=== PATIENT | male | born 1925 | race Caucasian/White ===

== ENCOUNTER 2016-07-31 19:17 | Inpatient (IN) | payer MEDICARE ==
[~2016-07-31] VITALS: Ht 165.1 cm; Wt 63.5 kg
[2016-07-31 19:26] VITALS: BP 176/77
[2016-07-31] MEDS ORDERED: Meclizine 25mg tab ORAL ONE (20:15)
[2016-07-31 21:02] LABS: BASOPHILS % (AUTO) 0.9 % (0.0-2.0); EOSINOPHILS % (AUTO) 1.7 % (0.0-3.0); MEAN CORPUSCULAR HEMOGLOBIN 31.2 PG (27.0-31.0); MEAN CORPUSCULAR HGB CONC 33.2 G/DL (32.0-36.0); MEAN CORPUSCULAR VOLUME 94 FL (80-99); MEAN PLATELET VOLUME 6.7 FL (6.5-10.1); MONOCYTES % (AUTO) 10.2 % (1.0-10.0); NEUTROPHILS % (AUTO) 76.2 % (45.0-75.0); PLATELET COUNT 207 K/UL (150-450); RED BLOOD COUNT 3.46 M/UL (4.70-6.10); RED CELL DISTRIBUTION WIDTH 12.8 % (11.6-14.8); WHITE BLOOD COUNT 11.4 K/UL (4.8-10.8)
[2016-07-31 21:12] LABS: TROPONIN I < 0.30 ng/mL (<=0.30)
[2016-07-31 21:16] LABS: ALANINE AMINOTRANSFERASE 7 U/L (3-41); ASPARTATE AMINO TRANSFERASE 16 U/L (5-40); CALCIUM 6.9 mg/dL (8.6-10.2); CARBON DIOXIDE 17 mEQ/L (20-30); CREATININE 1.1 mg/dL (0.7-1.2)
[2016-07-31 21:17] LABS: ALBUMIN/GLOBULIN RATIO 1.1 (1.0-2.7); ANION GAP 17 (5-15); CHLORIDE 101 mEQ/L (98-107); HEMOLYSIS 65; POTASSIUM 4.1 mEQ/L (3.4-4.9); SODIUM 135 mEQ/L (135-145); TOTAL PROTEIN 5.1 g/dL (6.6-8.7)
[2016-07-31 21:27] LABS: CKMB 2.3 ng/mL (< 6.7)
[2016-07-31 22:33] VITALS: BP 164/54
[2016-07-31] MEDS ORDERED: cefTRIAXone 1 GM in NS 55 ML IVPB ONE (22:45)
[2016-08-01] VITALS (7 sets, daily range): BP systolic 146–166; BP diastolic 56–73
--- NOTE | 2016-08-01 00:06 | Emergency Room Report ---
History of Present Illness General Chief Complaint: Dizziness Source: Patient, EMS Present Illness HPI This patient states he was sitting on a couch today and suddenly developed a spinning sensation. The patient states he was unable to stand up. He states every time he tried to stand up she would fall backward back onto the couch. He also states he moved his head the spinning reoccurs. He states that he also gets very nauseated. Patient states that he had a similar episode last year was admitted to [facility] and underwent a very thorough workup and no etiology was identified. The patient does admit that he's recently had a bronchitis. He has had an ongoing cough and congestion. He denies fever or chills. He denies headache neck pain. He denies abdominal pain. He has no other complaints. Allergies: Coded Allergies: No Known Allergies (Unverified , 07/31/16) Patient History Past Medical History: see triage record, HTN Past Surgical History: pacemaker Social History: Denies: alcohol use, drug use, smoking Reviewed Nursing Documentation: PMH: Agreed, PSxH: Agreed Nursing Documentation-PMH Past Medical History: No History, Except For Hx Hypertension: Yes Hx Pacemaker: Yes Review of Systems All Other Systems: negative except mentioned in HPI Physical Exam Vital Signs Date Time Temp Pulse Resp B/P Pulse Ox O2 Delivery O2 Flow Rate FiO2 07/31/16 19:12 98.2 60 18 176/77 98 Room Air Sp02 EP Interpretation: reviewed, normal General Appearance: no apparent distress, alert, GCS 15, non-toxic Head: normocephalic, atraumatic Eyes: bilateral eye PERRL, bilateral eye normal inspection ENT: hearing grossly normal, normal pharynx, no angioedema, normal voice Neck: full range of motion, supple/symm/no masses Respiratory: chest non-tender, lungs clear, normal breath sounds, speaking full sentences Cardiovascular #1: regular rate, rhythm, no edema Gastrointestinal: normal bowel sounds, non tender, soft, non-distended, no guarding, no rebound Rectal: deferred Musculoskeletal: back normal, gait/station normal, normal range of motion, non- tender Neurologic: alert, oriented x3, responsive, motor strength/tone normal, sensory intact, speech normal Psychiatric: judgement/insight normal, memory normal, mood/affect normal, no suicidal/homicidal ideation Skin: normal color, no rash, warm/dry, well hydrated Medical Decision Making Diagnostic Impression: Primary Impression: Pneumonia Additional Impression: Vertigo ER Course This patient presents with vertigo that appears to be peripheral in etiology. There are no signs or symptoms on exam the make me suspect a central etiology. CT of the head is negative. However, given the patient's age a central CVA is possible. The patient is also found to have a pneumonia. He is given broad- spectrum antibiotics here in the emergency department. I will admit this patient for further IV antibiotics and additionally this patient will likely need an MRI tomorrow to fully assess the vertigo. Also, given this patient's age she is a fall risk and I felt that discharging this patient home at night on meclizine is dangerous. The patient is admitted for further evaluation and treatment. Labs Test 07/31/16 20:30 White Blood Count 11.4 K/UL (4.8-10.8) Red Blood Count 3.46 M/UL (4.70-6.10) Hemoglobin 10.8 G/DL (14.2-18.0) Hematocrit 32.5 % (42.0-52.0) Mean Corpuscular Volume 94 FL (80-99) Mean Corpuscular Hemoglobin 31.2 PG (27.0-31.0) Mean Corpuscular Hemoglobin Concent 33.2 G/DL (32.0-36.0) Red Cell Distribution Width 12.8 % (11.6-14.8) Platelet Count 207 K/UL (150-450) Mean Platelet Volume 6.7 FL (6.5-10.1) Neutrophils (%) (Auto) 76.2 % (45.0-75.0) Lymphocytes (%) (Auto) 11.0 % (20.0-45.0) Monocytes (%) (Auto) 10.2 % (1.0-10.0) Eosinophils (%) (Auto) 1.7 % (0.0-3.0) Basophils (%) (Auto) 0.9 % (0.0-2.0) Sodium Level 135 mEQ/L (135-145) Potassium Level 4.1 mEQ/L (3.4-4.9) Chloride Level 101 mEQ/L (98-107) Carbon Dioxide Level 17 mEQ/L (20-30) Anion Gap 17 (5-15) Blood Urea Nitrogen 19 mg/dL (7-23) Creatinine 1.1 mg/dL (0.7-1.2) Estimat Glomerular Filtration Rate mL/min (>60) Glucose Level 75 mg/dL (74-106) Calcium Level 6.9 mg/dL (8.6-10.2) Total Bilirubin < 0.2 mg/dL (0.0-1.2) Aspartate Amino Transf (AST/SGOT) 16 U/L (5-40) Alanine Aminotransferase (ALT/SGPT) 7 U/L (3-41) Alkaline Phosphatase 50 U/L (40-129) Total Creatine Kinase 87 U/L (38-174) Creatine Kinase MB 2.3 ng/mL (< 6.7) Creatine Kinase MB Relative Index 2.6 Troponin I < 0.30 ng/mL (<=0.30) Total Protein 5.1 g/dL (6.6-8.7) Albumin 2.7 g/dL (3.5-5.2) Globulin 2.4 g/dL Albumin/Globulin Ratio 1.1 (1.0-2.7) EKG Diagnostic Results Rate: normal Rhythm: other ST Segments: no acute changes Other Impression Paced Rhythm Strip Diag. Results EP Interpretation: yes Rate: 60 Rhythm: no PVC's, no ectopy Other Impression paced Chest X-Ray Diagnostic Results EP Interpretation: Yes Findings: no pneumothorax Number of Views: 1 Other Impression RLL PNA Last Vital Signs Date Time Temp Pulse Resp B/P Pulse Ox O2 Delivery O2 Flow Rate FiO2 07/31/16 22:33 98.2 61 18 164/54 98 Room Air Disposition: ADMITTED INPATIENT Condition: Stable Referrals: NON PHYSICIAN (PCP) CARMELITA STARK D.O. Aug 01, 2016 00:06
[2016-08-01] MEDS ORDERED: DuoNeb 0.5-3(2.5)mg/3ml neb HHN PRN (00:30)
[2016-08-01] MEDS ORDERED: Nitroglycerin Subl 0.4mg tab (Bottle Of 25) SL PRN (00:30)
[2016-08-01] MEDS ORDERED: Miralax 17gm pkt ORAL PRN (00:30)
[2016-08-01] MEDS ORDERED: Mylanta II UD 30ml ORAL PRN (00:30)
[2016-08-01] MEDS ORDERED: UNOBMED (01:03)
[2016-08-01] MEDS: Cefepime HCl 1 GM in D5W 55 ML IV SCH (09:07)
[2016-08-01] MEDS: Heparin 5000 units/ml inj SUBQ SCH ×2 (09:14→21:48)
--- NOTE | 2016-08-01 13:54 | Diagnostic Imaging Report ---
Indication: Chest Pain Comparison: None A single view chest radiograph was obtained. Findings: There is a left pleural effusion present. The heart is enlarged. Lung volumes are low. Underlying basilar infiltrate may be present also. Sternotomy and pacemaker are noted. Impression: Left pleural effusion. Basilar atelectasis or pneumonia may be present as well
--- NOTE | 2016-08-01 13:54 | Diagnostic Imaging Report ---
Indication: Headache Technique: Contiguous 5 mm thick transaxial imaging of the head obtained in a Siemens Sensation [address] scanner. Soft tissue and bone windows generated. Total Dose length Product (DLP): [address] Dose Index Volume (CTDIvol): 70.38 mGy Comparison: none Findings: There is mild prominence of the ventricles, basal cisterns, and cerebral sulci consistent with atrophy. Mild, nonspecific, white matter hypoattenuation is noted throughout the brain consistent with chronic small vessel disease. There is no midline shift, edema, acute hemorrhage, mass effect, or abnormal extra-axial fluid collections. Bones and extra osseous soft tissues are unremarkable. Mucosal thickening noted within the paranasal sinuses. There is an old fracture of the right medial orbital wall. Impression: No acute intracranial bleed, mass effect or edema. Mild atrophy of the brain. Nonspecific white matter hypoattenuation probably due to chronic small vessel disease. Chronic sinusitis Old right medial orbital wall fracture The CT scanner at [facility] is accredited by the [employer] and the scans are performed using protocols designed to limit radiation exposure to as low as reasonably achievable to attain images of sufficient resolution adequate for diagnostic evaluation.
[2016-08-01] MEDS ORDERED: Promethazine/Codeine 5ml UD ORAL PRN (15:30)
--- NOTE | 2016-08-01 15:46 | Consultation ---
History of Present Illness General Date patient seen: Aug 01, 2016 Chief Complaint: Dizziness Referring physician: Dr. Santoro Reason for Consultation: couhg Present Illness HPI 89 year old male with hx of pacemaker, cough for a week, treated by pmd with oral antibiotics presented to [facility] with CC spinning sensation while he was sitting on a couch today. The patient states he was unable to stand up. He states every time he tried to stand up she would fall backward back onto the couch. Patient states that he had a similar episode last year was admitted to [facility] and underwent a very thorough workup and no etiology was identified. A CXR in ER showed LLL effusion and possible infiltrate. He is admitted for further work up. Allergies: Coded Allergies: No Known Allergies (Unverified , 07/31/16) Medication History Miscellaneous Medications Unable to Obtain Medications (Unable To Obtain Meds), (Reported) Patient History Healthcare decision maker pt alert and oriented Resuscitation status Full Code Advanced Directive on File Past Medical/Surgical History Past Medical/Surgical History: (1) Pacemaker (2) HTN (hypertension) Review of Systems All Other Systems: negative except mentioned in HPI Physical Exam General Appearance: WD/WN Lines, tubes and drains: peripheral, PICC HEENT: normocephalic, atraumatic Neck: non-tender, normal alignment Respiratory/Chest: chest wall non-tender, lungs clear Breasts: no masses Cardiovascular/Chest: normal peripheral pulses Abdomen: normal bowel sounds, non tender Genitourinary/Rectal: normal genital exam, normal rectal exam Last 24 Hour Vital Signs Date Time Temp Pulse Resp B/P Pulse Ox O2 Delivery O2 Flow Rate FiO2 08/01/16 11:51 97.4 62 18 146/64 97 Room Air 08/01/16 08:22 97.2 66 18 158/60 96 Room Air 08/01/16 08:13 85 18 Room Air 08/01/16 04:00 97.9 60 18 151/65 95 Room Air 08/01/16 01:30 97.7 63 18 152/68 96 Room Air 08/01/16 01:10 98.2 60 22 159/56 98 Room Air 08/01/16 00:59 98.2 60 22 159/56 98 Room Air 08/01/16 00:14 98.2 60 26 166/56 95 Room Air 07/31/16 22:33 98.2 61 18 164/54 98 Room Air 07/31/16 19:26 98.2 84 18 176/77 98 Room Air 07/31/16 19:12 98.2 60 18 176/ 98 Room Air 07/31/16 19:00 84 18 Room Air Intake and Output 07/31/16 08/01/16 19:00 07:00 Intake Total 675 ml Output Total 900 ml Balance -225 ml Intake Oral 120 ml IV Total 555 ml Output Urine Total 900 ml # Voids 1 Laboratory Tests Test 07/31/16 20:30 White Blood Count 11.4 K/UL (4.8-10.8) H Red Blood Count 3.46 M/UL (4.70-6.10) L Hemoglobin 10.8 G/DL (14.2-18.0) L Hematocrit 32.5 % (42.0-52.0) L Mean Corpuscular Volume 94 FL (80-99) Mean Corpuscular Hemoglobin 31.2 PG (27.0-31.0) H Mean Corpuscular Hemoglobin Concent 33.2 G/DL (32.0-36.0) Red Cell Distribution Width 12.8 % (11.6-14.8) Platelet Count 207 K/UL (150-450) Mean Platelet Volume 6.7 FL (6.5-10.1) Neutrophils (%) (Auto) 76.2 % (45.0-75.0) H Lymphocytes (%) (Auto) 11.0 % (20.0-45.0) L Monocytes (%) (Auto) 10.2 % (1.0-10.0) H Eosinophils (%) (Auto) 1.7 % (0.0-3.0) Basophils (%) (Auto) 0.9 % (0.0-2.0) Sodium Level 135 mEQ/L (135-145) Potassium Level 4.1 mEQ/L (3.4-4.9) Chloride Level 101 mEQ/L (98-107) Carbon Dioxide Level 17 mEQ/L (20-30) L Anion Gap 17 (5-15) H Blood Urea Nitrogen 19 mg/dL (7-23) Creatinine 1.1 mg/dL (0.7-1.2) Estimat Glomerular Filtration Rate mL/min (>60) Glucose Level 75 mg/dL (74-106) Calcium Level 6.9 mg/dL (8.6-10.2) L Total Bilirubin < 0.2 mg/dL (0.0-1.2) Aspartate Amino Transf (AST/SGOT) 16 U/L (5-40) Alanine Aminotransferase (ALT/SGPT) 7 U/L (3-41) Alkaline Phosphatase 50 U/L (40-129) Total Creatine Kinase 87 U/L (38-174) Creatine Kinase MB 2.3 ng/mL (< 6.7) Creatine Kinase MB Relative Index 2.6 Troponin I < 0.30 ng/mL (<=0.30) Total Protein 5.1 g/dL (6.6-8.7) L Albumin 2.7 g/dL (3.5-5.2) L Globulin 2.4 g/dL Albumin/Globulin Ratio 1.1 (1.0-2.7) Height (Feet): 5 Height (Inches): 5.00 Weight (Pounds): 140 Medications Current Medications Medications (Trade) Dose Ordered Sig/Huy Route PRN Reason Start Time Stop Time Status Last Admin Dose Admin Acetaminophen (Tylenol) 650 mg Q4H PRN ORAL fever 08/01/16 00:30 08/31/16 00:29 Al Hydroxide/Mg Hydroxide (Mylanta II) 30 ml Q6H PRN ORAL dyspepsia 08/01/16 00:30 08/31/16 00:29 Albuterol/ Ipratropium 3 ml 3 ml Q4H PRN HHN Shortness of Breath 08/01/16 00:30 08/06/16 00:29 Cefepime HCl/ Dextrose (Maxipime/D5W) 55 ml @ 110 mls/hr Q24H IV 08/01/16 09:00 08/08/16 08:59 08/01/16 09:07 Heparin Sodium (Porcine) (Heparin 5000 units/ml) 5,000 units EVERY 12 HOURS SUBQ 08/01/16 09:00 08/31/16 08:59 08/01/16 09:14 Nitroglycerin (Ntg) 0.4 mg Q5M PRN SL Prn Chest Pain 08/01/16 00:30 08/31/16 00:29 Ondansetron HCl (Zofran) 4 mg Q6H PRN IVP Nausea & Vomiting 08/01/16 00:30 08/31/16 00:29 Polyethylene Glycol (Miralax) 17 gm DAILYPRN PRN ORAL Constipation 08/01/16 00:30 08/31/16 00:29 Promethazine HCl/ Codeine (Phenergan with Codeine) 5 ml Q4H PRN ORAL For Cough 08/01/16 00:30 08/31/16 00:29 Temazepam (Restoril) 15 mg HSPRN PRN ORAL Insomnia 08/01/16 00:30 08/08/16 00:29 Assessment/Plan Problem List: (1) Pleural effusion ICD Codes: J90 - Pleural effusion, not elsewhere classified SNOMED: 44359334 (2) Pneumonia ICD Codes: J18.9 - Pneumonia, unspecified organism SNOMED: 231011877 (3) Pacemaker ICD Codes: Z95.0 - Presence of cardiac pacemaker SNOMED: 619566073, 387263251 (4) HTN (hypertension) ICD Codes: I10 - Essential (primary) hypertension SNOMED: 09909293 Assessment/Plan respiratory treatment IV antibiotics check sputum antitussives chest PT JANET OLIVARES Aug 01, 2016 15:46
--- NOTE | 2016-08-01 18:44 | History & Physical ---
History and Physical History & Physicial job # [id number] Akira Santoro MD Aug 01, 2016 18:44
[2016-08-01] MEDS ORDERED: Meclizine 25mg tab ORAL PRN (18:45)
[2016-08-01] MEDS: Aspirin Baby 81mg ORAL SCH (19:24)
[2016-08-01] MEDS: Amiodarone 200mg tab ORAL SCH (19:25)
[2016-08-01] MEDS: Tamsulosin 0.4mg cap ORAL SCH (21:38)
[2016-08-01] MEDS: Promethazine/Codeine 5ml UD ORAL PRN (21:38)
--- NOTE | 2016-08-01 21:59 | History and Physical Report ---
DATE OF ADMISSION: 07/31/2016 CHIEF COMPLAINT: Dizziness. HISTORY OF PRESENT ILLNESS: This is an 89-year-old very delightful gentleman with past medical history significant for sick sinus syndrome status post pacemaker placement on 11/08/2015, history of coronary artery disease status post coronary artery bypass graft in 1990, hypertension, osteoarthrosis of spine, paroxysmal atrial fibrillation, BPH with history of unsteady gait in the past, who was presented to the hospital complaining about the dizziness. The patient had developed sensation of the spinning and when he stands up unable to stand and he was feeling tired and when he stands up he was feeling backward and back to the couch. He moves his head and the spinning reoccurrence become progressively worsening and he gets very nauseated associated with that similar episode in 2015 where he was seen at [facility] for over 10 days and subsequently he was advised to have a pacemaker placement. Shortly after initial evaluation in the emergency, the patient was admitted to the hospital with dizziness, possible benign vertigo and the patient had a history of recent upper respiratory infection. Bronchitis was treated with oral antibiotics as per primary doctor Dr. Mina Caputo. PAST MEDICAL HISTORY/PAST SURGICAL HISTORY: As above. History of hypertension, sick sinus syndrome status post pacemaker, coronary artery disease status post coronary artery bypass graft, paroxysmal atrial fibrillation, BPH and history of unsteady gait in the past. MEDICATIONS: Medications at home. The patient does not remember his medication, however, reviewing the records from [facility] was noted that the patient was on amiodarone 200 mg half a tablet daily, aspirin 81 mg daily, vitamin D 2000 IU daily, Plavix 75 mg daily, finasteride 5 mg p.o. daily, Xalatan 0.005% 1 drop in each eye at night, lisinopril 10 mg daily, Protonix 20 mg p.o. daily, Crestor 5 mg p.o. daily and Flomax 0.4 mg p.o. daily. ALLERGIES: No known drug allergies. SOCIAL HISTORY: The patient denies any smoking, alcohol, or drugs at this time. He is . His daughter and son lives with him. FAMILY HISTORY: Noncontributory. Coronary artery disease runs in the family. REVIEW OF SYSTEMS: Mostly as above. Denies any dysuria, frequency, or hematuria. Denies any hemoptysis or hematochezia. Complained about cough and runny nose. Denies any double vision. Denies any loss of consciousness. Denies any suicidal or homicidal ideation. Denies any chest pain or shortness of breath. PHYSICAL EXAMINATION: VITAL SIGNS: On admission, temperature of 98.2 degrees, pulse of 60, respiration 18, and blood pressure 176/77. GENERAL: The patient is awake, responsive, in no acute distress. HEENT: Head and neck examination, pupils are equal and reactive to light. Extraocular movements are intact. NECK: Supple. No JVD. LUNGS: Good air entry. No wheezes or rales. HEART: S1 and S2. Distant heart sounds. No murmur or gallops. Chest wall has a left-sided pacemaker was noted and the sternum has an old surgical scar from coronary artery bypass graft was noted. ABDOMEN: Soft, nondistended and nontender. Positive bowel sounds. EXTREMITIES: No cyanosis, clubbing, or edema. NEUROLOGIC: Cranial nerves II through XII are grossly intact. Motor is 5/5 in all the extremities. LABORATORY AND DIAGNOSTIC DATA: On admission from the ER, his sodium 135, potassium 4.1, chloride 101, bicarbonate 17, BUN 19, creatinine 1.1, and glucose 75. Calcium is 6.9. Total bilirubin is less than 0.20. AST of 16 and ALT of 7. Troponin is less than 0.30. WBC of 11, hemoglobin 10.8, hematocrit 32, and platelets 207,000. The patient had a chest x-ray done showed left pleural effusion, bibasilar atelectasis or pneumonia may be represent as well. CT of the head was done, no acute intracranial bleed, mass effect, or edema. Mild atrophy of the brain, nonspecific white matter hypoattenuation probably due to the chronic small vessel disease, chronic sinusitis, and old right medial orbital wall fracture was identified. ASSESSMENT: 1. Dizziness possibly due to acute vestibular dysfunction such as vertigo. 2. Sick sinus syndrome status pacemaker. 3. 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 4. History of benign prostatic hypertrophy. 5. History of unsteady gait with a fall in the past with orbital floor fracture. 6. Arthritis of the spinal cord. PLAN: Admit the patient to Med/Surg. We will follow up laboratory. Discussed the case with Dr. Daniels, Pulmonary Critical Care as well as Dr. Geo Lockhart from Cardiology. Discussed with the primary doctor, Dr. Mina Caputo extensively. Copy of the record from [facility] was obtained. Code status is Full Code. We will resume home medications. IV hydration. We will hold off on antibiotics at this time. Activity as tolerated. PT and OT evaluation. Akira Santoro M.D. DR: JESSICA JOB#: [id number] CC:
[2016-08-02 00:54] VITALS: BP 143/64
[2016-08-02 04:00] VITALS: BP 120/48
[2016-08-02 07:07] LABS: BASOPHILS % (AUTO) 0.6 % (0.0-2.0); EOSINOPHILS % (AUTO) 3.5 % (0.0-3.0); LYMPHOCYTES % (AUTO) 12.9 % (20.0-45.0); MEAN CORPUSCULAR HEMOGLOBIN 31.8 PG (27.0-31.0); MEAN CORPUSCULAR HGB CONC 34.6 G/DL (32.0-36.0); MEAN CORPUSCULAR VOLUME 92 FL (80-99); MEAN PLATELET VOLUME 7.5 FL (6.5-10.1); MONOCYTES % (AUTO) 14.3 % (1.0-10.0); NEUTROPHILS % (AUTO) 68.8 % (45.0-75.0); PLATELET COUNT 303 K/UL (150-450); RED BLOOD COUNT 3.96 M/UL (4.70-6.10); RED CELL DISTRIBUTION WIDTH 12.2 % (11.6-14.8); WHITE BLOOD COUNT 9.4 K/UL (4.8-10.8)
[2016-08-02 07:26] LABS: TROPONIN I < 0.30 ng/mL (<=0.30)
[2016-08-02 07:29] LABS: ALANINE AMINOTRANSFERASE 8 U/L (3-41); ALBUMIN/GLOBULIN RATIO 1.1 (1.0-2.7); ANION GAP 16 (5-15); ASPARTATE AMINO TRANSFERASE 14 U/L (5-40); CALCIUM 9.2 mg/dL (8.6-10.2); CARBON DIOXIDE 23 mEQ/L (20-30); CHLORIDE 96 mEQ/L (98-107); CREATININE 1.2 mg/dL (0.7-1.2); HEMOLYSIS 9; PHOSPHORUS 3.8 mg/dL (2.5-4.8); POTASSIUM 4.8 mEQ/L (3.4-4.9); SODIUM 135 mEQ/L (135-145); TOTAL PROTEIN 6.3 g/dL (6.6-8.7)
[2016-08-02 07:30] LABS: CHOLESTEROL 117 mg/dL (< 200)
[2016-08-02 08:00] VITALS: BP_SYST 129; BP_SYST 79; BP_SYST 91; BP_DIAS 33; BP_DIAS 58; BP_DIAS 64
[2016-08-02] MEDS: Vitamin D 1000 IU Tab ORAL SCH (08:39)
[2016-08-02] MEDS: Aspirin Baby 81mg ORAL SCH (08:39)
[2016-08-02] MEDS: Amiodarone 200mg tab ORAL SCH (08:40)
[2016-08-02] MEDS: Lisinopril 10mg tab ORAL SCH (08:40)
[2016-08-02] MEDS: Cefepime HCl 1 GM in D5W 55 ML IV SCH (08:43)
[2016-08-02] MEDS: Heparin 5000 units/ml inj SUBQ SCH ×2 (08:49→22:05)
--- NOTE | 2016-08-02 10:19 | Diagnostic Imaging Report ---
Indication: DYSPNEA Technique: XRAY CHEST 1 V Comparison:07/31/2012 Findings: There is blunting of the angle, unchanged. The cardiac mediastinal silhouette is unchanged. Pacemaker is again identified. There are sternal wires. Impression: No acute change from previous examination. Blunting of the left costophrenic angle remains.
[2016-08-02 12:00] VITALS: BP 133/63
[2016-08-02 16:00] VITALS: BP 125/63
--- NOTE | 2016-08-02 16:39 | Internal Med Progress Note ---
Subjective Physician Name Akira Santoro Attending Physician Akira Santoro MD Current Medications Medications (Trade) Dose Ordered Sig/Huy Route PRN Reason Start Time Stop Time Status Last Admin Dose Admin Acetaminophen (Tylenol) 650 mg Q4H PRN ORAL fever 08/01/16 00:30 08/31/16 00:29 Al Hydroxide/Mg Hydroxide (Mylanta II) 30 ml Q6H PRN ORAL dyspepsia 08/01/16 00:30 08/31/16 00:29 Albuterol/ Ipratropium 3 ml 3 ml Q4H PRN HHN Shortness of Breath 08/01/16 00:30 08/06/16 00:29 Amiodarone HCl (Cordarone) 100 mg DAILY ORAL 08/01/16 18:45 08/31/16 18:44 08/02/16 08:40 Aspirin (ASA) 81 mg DAILY ORAL 08/01/16 18:45 08/31/16 18:44 08/02/16 08:39 Atorvastatin Calcium (Lipitor) 40 mg BEDTIME ORAL 08/01/16 21:00 08/31/16 20:59 08/01/16 21:38 Cefepime HCl/ Dextrose (Maxipime/D5W) 55 ml @ 110 mls/hr Q24H IV 08/01/16 09:00 08/08/16 08:59 08/02/16 08:43 Clopidogrel Bisulfate (Plavix) 75 mg DAILY ORAL 08/02/16 09:00 09/01/16 08:59 08/02/16 08:40 Finasteride (Proscar) 5 mg DAILY ORAL 08/02/16 09:00 09/01/16 08:59 08/02/16 08:39 Heparin Sodium (Porcine) (Heparin 5000 units/ml) 5,000 units EVERY 12 HOURS SUBQ 08/01/16 09:00 08/31/16 08:59 08/02/16 08:49 Latanoprost (Xalatan) 1 drop BEDTIME BOTH EYES 08/01/16 21:00 08/31/16 20:59 08/01/16 23:32 Lisinopril (Zestril) 10 mg DAILY ORAL 08/02/16 09:00 09/01/16 08:59 Meclizine HCl (Antivert) 25 mg Q6H PRN ORAL for dizziness 08/01/16 18:45 08/31/16 18:44 Nitroglycerin (Ntg) 0.4 mg Q5M PRN SL Prn Chest Pain 08/01/16 00:30 08/31/16 00:29 Ondansetron HCl (Zofran) 4 mg Q6H PRN IVP Nausea & Vomiting 08/01/16 00:30 08/31/16 00:29 Pantoprazole (Protonix) 40 mg DAILY ORAL 08/02/16 09:00 09/01/16 08:59 08/02/16 08:39 Polyethylene Glycol (Miralax) 17 gm DAILYPRN PRN ORAL Constipation 08/01/16 00:30 08/31/16 00:29 Promethazine HCl/ Codeine (Phenergan with Codeine) 5 ml Q4H PRN ORAL For Cough 08/01/16 00:30 08/31/16 00:29 08/01/16 21:38 Tamsulosin HCl (Flomax) 0.4 mg BEDTIME ORAL 08/01/16 21:00 08/31/16 20:59 08/01/16 21:38 Temazepam (Restoril) 15 mg HSPRN PRN ORAL Insomnia 08/01/16 00:30 08/08/16 00:29 Vitamin D (Vitamin D) 2,000 intlu DAILY ORAL 08/02/16 09:00 09/01/16 08:59 08/02/16 08:39 Allergies: Coded Allergies: No Known Allergies (Unverified , 07/31/16) Subjective awake, alert, responsive, feeling good, No CP, No SOB, No dizziness Objective Last Vital Signs Date Time Temp Pulse Resp B/P Pulse Ox O2 Delivery O2 Flow Rate FiO2 08/02/16 16:00 97.0 63 17 125/63 97 Room Air Laboratory Tests Test 08/02/16 05:35 White Blood Count 9.4 K/UL (4.8-10.8) Red Blood Count 3.96 M/UL (4.70-6.10) L Hemoglobin 12.6 G/DL (14.2-18.0) L Hematocrit 36.5 % (42.0-52.0) L Mean Corpuscular Volume 92 FL (80-99) Mean Corpuscular Hemoglobin 31.8 PG (27.0-31.0) H Mean Corpuscular Hemoglobin Concent 34.6 G/DL (32.0-36.0) Red Cell Distribution Width 12.2 % (11.6-14.8) Platelet Count 303 K/UL (150-450) Mean Platelet Volume 7.5 FL (6.5-10.1) Neutrophils (%) (Auto) 68.8 % (45.0-75.0) Lymphocytes (%) (Auto) 12.9 % (20.0-45.0) L Monocytes (%) (Auto) 14.3 % (1.0-10.0) H Eosinophils (%) (Auto) 3.5 % (0.0-3.0) H Basophils (%) (Auto) 0.6 % (0.0-2.0) Sodium Level 135 mEQ/L (135-145) Potassium Level 4.8 mEQ/L (3.4-4.9) Chloride Level 96 mEQ/L (98-107) L Carbon Dioxide Level 23 mEQ/L (20-30) Anion Gap 16 (5-15) H Blood Urea Nitrogen 23 mg/dL (7-23) Creatinine 1.2 mg/dL (0.7-1.2) Estimat Glomerular Filtration Rate mL/min (>60) Glucose Level 85 mg/dL (74-106) Calcium Level 9.2 mg/dL (8.6-10.2) # Phosphorus Level 3.8 mg/dL (2.5-4.8) Magnesium Level 2.1 mg/dL (1.7-2.5) Total Bilirubin 0.3 mg/dL (0.0-1.2) Aspartate Amino Transf (AST/SGOT) 14 U/L (5-40) Alanine Aminotransferase (ALT/SGPT) 8 U/L (3-41) Alkaline Phosphatase 67 U/L (40-129) Troponin I < 0.30 ng/mL (<=0.30) Pro-B-Type Natriuretic Peptide 2316 pg/mL (0-450) H Total Protein 6.3 g/dL (6.6-8.7) L Albumin 3.4 g/dL (3.5-5.2) L Globulin 2.9 g/dL Albumin/Globulin Ratio 1.1 (1.0-2.7) Cholesterol Level 117 mg/dL (< 200) Microbiology Date/Time Source Procedure Growth Status 08/01/16 06:00 Sputum Gram Stain - Final Resulted 08/01/16 06:00 Sputum Sputum Culture Pending Resulted Intake and Output 08/01/16 08/02/16 19:00 07:00 Intake Total 895 ml Output Total 700 ml Balance 195 ml Intake Oral 840 ml IV Total 55 ml Output Urine Total 700 ml # Voids 3 1 Objective GENERAL: The patient is awake, responsive, in no acute distress. HEENT: Head and neck examination, pupils are equal and reactive to light. Extraocular movements are intact. NECK: Supple. No JVD. LUNGS: Good air entry. No wheezes or rales. HEART: S1 and S2. Distant heart sounds. No murmur or gallops. Chest wall has a left-sided pacemaker was noted and the sternum has an old surgical scar from coronary artery bypass graft was noted. ABDOMEN: Soft, nondistended and nontender. Positive bowel sounds. EXTREMITIES: No cyanosis, clubbing, or edema. NEUROLOGIC: Cranial nerves II through XII are grossly intact. Motor is 5/5 in all the extremities. Assessment/Plan Assessment/Plan 1. Dizziness possibly due to acute vestibular dysfunction such as vertigo. 2. Sick sinus syndrome status pacemaker. 3. 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 4. History of benign prostatic hypertrophy. 5. History of unsteady gait with a fall in the past with orbital floor fracture. 6. Arthritis of the spinal cord. PLAN: in Med/Surg. monitor laboratory. Code status is Full Code. Activity as tolerated. PT and OT evaluation. Discharge home today Akira Santoro MD Aug 02, 2016 16:39
[2016-08-02 20:00] VITALS: BP 126/59
[2016-08-02] MEDS: Promethazine/Codeine 5ml UD ORAL PRN (22:03)
[2016-08-02] MEDS: Tamsulosin 0.4mg cap ORAL SCH (22:04)
--- NOTE | 2016-08-02 23:50 | Pulmonology Progress Note ---
Assessment/Plan Problems: (1) Pleural effusion (2) Pneumonia (3) Pacemaker (4) HTN (hypertension) Assessment/Plan Assessment/Plan Problem List: (1) Pleural effusion ICD Codes: J90 - Pleural effusion, not elsewhere classified Assessment/Plan respiratory treatment IV antibiotics check sputum antitussives chest PT Subjective ROS Limited/Unobtainable: Yes Constitutional: Reports: anorexia, fatigue Respiratory: Reports: dyspnea on exertion, pleuritic pain, productive cough, shortness of breath, sputum, wheezing Neurologic: Reports: confusion, weakness Allergies: Coded Allergies: No Known Allergies (Unverified , 07/31/16) Objective Last 24 Hour Vital Signs Date Time Temp Pulse Resp B/P Pulse Ox O2 Delivery O2 Flow Rate FiO2 08/02/16 20:00 98.2 63 18 126/59 98 Room Air 08/02/16 18:58 81 18 Room Air 08/02/16 16:00 97.0 63 17 125/63 97 Room Air 08/02/16 12:00 97.5 64 18 133/63 99 Room Air 08/02/16 08:40 79/64 08/02/16 08:00 91/33 08/02/16 08:00 97.2 67 18 79/64 99 Room Air 08/02/16 08:00 129/58 08/02/16 07:04 78 18 Room Air 08/02/16 04:00 97.2 64 19 120/48 95 Room Air 08/02/16 00:54 97.2 73 19 143/64 97 Room Air Intake and Output 08/01/16 08/02/16 19:00 07:00 Intake Total 895 ml Output Total 700 ml Balance 195 ml Intake Oral 840 ml IV Total 55 ml Output Urine Total 700 ml # Voids 3 1 General Appearance: no acute distress HEENT: normocephalic, atraumatic, PERRL Respiratory/Chest: chest wall non-tender, decreased breath sounds, accessory muscle use, crackles/rales, rhonchi, expiratory wheezing, inspiratory wheezing, pleural rub Cardiovascular: normal peripheral pulses, normal rate, regular rhythm, no JVD Abdomen: normal bowel sounds, soft, non tender, no organomegaly, non distended Genitourinary: normal external genitalia Extremities: no cyanosis Skin: rash, lesions Neurologic/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, responsive, disoriented Microbiology Date/Time Source Procedure Growth Status 08/01/16 06:00 Sputum Gram Stain - Final Resulted 08/01/16 06:00 Sputum Sputum Culture Pending Resulted Laboratory Tests 08/02/16 05:35: White Blood Count 9.4, Red Blood Count 3.96L, Hemoglobin 12.6L, Hematocrit 36.5L , Mean Corpuscular Volume 92, Mean Corpuscular Hemoglobin 31.8H, Mean Corpuscular Hemoglobin Concent 34.6, Red Cell Distribution Width 12.2, Platelet Count 303, Mean Platelet Volume 7.5, Neutrophils (%) (Auto) 68.8, Lymphocytes (% ) (Auto) 12.9L, Monocytes (%) (Auto) 14.3H, Eosinophils (%) (Auto) 3.5H, Basophils (%) (Auto) 0.6, Sodium Level 135, Potassium Level 4.8, Chloride Level 96L, Carbon Dioxide Level 23, Anion Gap 16H, Blood Urea Nitrogen 23, Creatinine 1.2, Estimat Glomerular Filtration Rate , Glucose Level 85, Calcium Level 9.2#, Phosphorus Level 3.8, Magnesium Level 2.1, Total Bilirubin 0.3, Aspartate Amino Transf (AST/SGOT) 14, Alanine Aminotransferase (ALT/SGPT) 8, Alkaline Phosphatase 67, Troponin I < 0.30, Pro-B-Type Natriuretic Peptide 2316H, Total Protein 6.3L, Albumin 3.4L, Globulin 2.9, Albumin/Globulin Ratio 1.1, Cholesterol Level 117 Current Medications Medications (Trade) Dose Ordered Sig/Huy Route PRN Reason Start Time Stop Time Status Last Admin Dose Admin Acetaminophen (Tylenol) 650 mg Q4H PRN ORAL fever 08/01/16 00:30 08/31/16 00:29 Al Hydroxide/Mg Hydroxide (Mylanta II) 30 ml Q6H PRN ORAL dyspepsia 08/01/16 00:30 08/31/16 00:29 Albuterol/ Ipratropium 3 ml 3 ml Q4H PRN HHN Shortness of Breath 08/01/16 00:30 08/06/16 00:29 Amiodarone HCl (Cordarone) 100 mg DAILY ORAL 08/01/16 18:45 08/31/16 18:44 08/02/16 08:40 Aspirin (ASA) 81 mg DAILY ORAL 08/01/16 18:45 4/9/17 18:44 08/02/16 08:39 Atorvastatin Calcium (Lipitor) 40 mg BEDTIME ORAL 08/01/16 21:00 08/31/16 20:59 08/02/16 22:04 Cefepime HCl/ Dextrose (Maxipime/D5W) 55 ml @ 110 mls/hr Q24H IV 08/01/16 09:00 08/08/16 08:59 08/02/16 08:43 Clopidogrel Bisulfate (Plavix) 75 mg DAILY ORAL 08/02/16 09:00 09/01/16 08:59 08/02/16 08:40 Finasteride (Proscar) 5 mg DAILY ORAL 08/02/16 09:00 09/01/16 08:59 08/02/16 08:39 Heparin Sodium (Porcine) (Heparin 5000 units/ml) 5,000 units EVERY 12 HOURS SUBQ 08/01/16 09:00 08/31/16 08:59 08/02/16 22:05 Latanoprost (Xalatan) 1 drop BEDTIME BOTH EYES 08/01/16 21:00 08/31/16 20:59 08/02/16 22:04 Lisinopril (Zestril) 10 mg DAILY ORAL 08/02/16 09:00 09/01/16 08:59 Meclizine HCl (Antivert) 25 mg Q6H PRN ORAL for dizziness 08/01/16 18:45 08/31/16 18:44 Nitroglycerin (Ntg) 0.4 mg Q5M PRN SL Prn Chest Pain 08/01/16 00:30 08/31/16 00:29 Ondansetron HCl (Zofran) 4 mg Q6H PRN IVP Nausea & Vomiting 08/01/16 00:30 08/31/16 00:29 Pantoprazole (Protonix) 40 mg DAILY ORAL 08/02/16 09:00 09/01/16 08:59 08/02/16 08:39 Polyethylene Glycol (Miralax) 17 gm DAILYPRN PRN ORAL Constipation 08/01/16 00:30 08/31/16 00:29 Promethazine HCl/ Codeine (Phenergan with Codeine) 5 ml Q4H PRN ORAL For Cough 08/01/16 00:30 08/31/16 00:29 08/02/16 22:03 Tamsulosin HCl (Flomax) 0.4 mg BEDTIME ORAL 08/01/16 21:00 08/31/16 20:59 08/02/16 22:04 Temazepam (Restoril) 15 mg HSPRN PRN ORAL Insomnia 08/01/16 00:30 08/08/16 00:29 Vitamin D (Vitamin D) 2,000 intlu DAILY ORAL 08/02/16 09:00 09/01/16 08:59 08/02/16 08:39 JANET OLIVARES Aug 02, 2016 23:50
[2016-08-03] VITALS: BP 157/75
[2016-08-03 04:00] VITALS: BP 149/51
[2016-08-03 07:55] VITALS: BP 105/50
[2016-08-03] MEDS: Vitamin D 1000 IU Tab ORAL SCH (10:39)
[2016-08-03] MEDS: Aspirin Baby 81mg ORAL SCH (10:41)
[2016-08-03] MEDS: Lisinopril 10mg tab ORAL SCH (10:45)
[2016-08-03] MEDS: Amiodarone 200mg tab ORAL SCH (10:45)
[2016-08-03] MEDS: Cefepime HCl 1 GM in D5W 55 ML IV SCH (10:46)
[2016-08-03] MEDS: Heparin 5000 units/ml inj SUBQ SCH (10:50)
[2016-08-03 11:44] VITALS: BP 124/60
[2016-08-03 16:00] VITALS: BP 122/67
--- NOTE | 2016-08-03 19:28 | Internal Med Progress Note ---
Subjective Physician Name Akira Santoro Attending Physician Akira Santoro MD Allergies: Coded Allergies: No Known Allergies (Unverified , 07/31/16) Subjective awake, alert, responsive, No CP, No SOB, No dizziness Objective Last Vital Signs Date Time Temp Pulse Resp B/P Pulse Ox O2 Delivery O2 Flow Rate FiO2 08/03/16 16:00 97.7 68 18 122/67 98 Room Air Microbiology Date/Time Source Procedure Growth Status 08/01/16 06:00 Sputum Gram Stain - Final Complete 08/01/16 06:00 Sputum Sputum Culture - Final NORMAL UPPER RESPIRATORY SIERRA PRESENT Complete Intake and Output 08/02/16 08/03/16 19:00 07:00 Intake Total 545 ml 360 ml Output Total 701 ml Balance -156 ml 360 ml Intake Oral 490 ml 360 ml IV Total 55 ml Output Urine Total 700 ml Stool Total 1 ml # Voids 1 3 Objective GENERAL: The patient is awake, responsive, in no acute distress. HEENT: Head and neck examination, pupils are equal and reactive to light. Extraocular movements are intact. NECK: Supple. No JVD. LUNGS: Good air entry. No wheezes or rales. HEART: S1 and S2. Distant heart sounds. No murmur or gallops. Chest wall has a left-sided pacemaker was noted and the sternum has an old surgical scar from coronary artery bypass graft was noted. ABDOMEN: Soft, nondistended and nontender. Positive bowel sounds. EXTREMITIES: No cyanosis, clubbing, or edema. NEUROLOGIC: Cranial nerves II through XII are grossly intact. Motor is 5/5 in all the extremities. Assessment/Plan Assessment/Plan 1. Dizziness possibly due to acute vestibular dysfunction such as vertigo. 2. Sick sinus syndrome status pacemaker. 3. 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 4. History of benign prostatic hypertrophy. 5. History of unsteady gait with a fall in the past with orbital floor fracture. 6. Arthritis of the spinal cord. PLAN: in Med/Surg. monitor laboratory. Code status is Full Code. PT Mobility Discharge home with HH today Akira Santoro MD Aug 03, 2016 19:28
--- NOTE | 2016-08-04 14:18 | Cardiology Report ---
APPROVED REPORT EXAM: Two-dimensional and M-mode echocardiogram with Doppler and color Doppler. INDICATION Abnormal cardiac function study M-Mode DIMENSIONS IVSd2.0 (0.7-1.1cm)Left Atrium (MM)5.4 (1.6-4.0cm) LVDd4.2 (3.5-5.6cm)Aortic Root2.3 (2.0-3.7cm) PWd1.2 (0.7-1.1cm)Aortic Cusp Exc.1.5 (1.5-2.0cm) LVDs2.8 (2.5-4.0cm) PWs1.8 cm Technically difficult study due to poor acoustic windows. Study quality precludes accurate assessment of regional wall motion. Normal left ventricular chamber size, systolic function and wall motion to extent visualized. Left ventricular ejection fraction estimated to be 55 %. Moderate left ventricular hypertrophy. Anterior Echo-free space, may be due to pericardial fat or effusion. Mild left atrial enlargement. Right atrial and right ventricular chamber sizes are within normal limits. Mild focal aortic valve sclerosis with adequate cusp excursion. Mildly thickened mitral valve leaflets with normal excursion. Mild mitral annulus and aortic root calcification. Pulmonic valve not well visualized. Normal tricuspid valve structure. Interatrial septum bulging toward left atrium. IVC not obtainable. A color flow and spectral Doppler study was performed and revealed: Mild aortic regurgitation. Mild to moderate mitral regurgitation. Mitral diastolic velocities suggest reduced left ventricular relaxation (Grade I). Mild to moderate tricuspid regurgitation. No pulmonic regurgitation present.
--- NOTE | 2016-08-05 08:03 | Discharge Summary ---
Discharge Summary Hospital Course Date of Admission Jul 31, 2016 at 22:07 Date of Discharge Aug 03, 2016 at 16:45 Admitting Diagnosis uncontrolled vertigo/fall risk HPI Miguel Gould is a 89 year old male who was admitted on Jul 31, 2016 at 22: 07 for Uncontrolled Vertigo/Fall Risk Hospital Course dc summary # [id number] Discharge Condition Upon Discharge: stable Discharge Disposition Patient was discharged to Home with Home Health(06) Discharge Diagnoses: Discharge Instructions Discharge Instructions Special Instructions I have been assigned to complete a D/C Summary on this account. I was not involved in the patient management Elvira Lacey NP ([facility]) Aug 05, 2016 08:03
--- NOTE | 2016-08-05 22:58 | Discharge Summary 2 SIG ---
DATE OF ADMISSION: 07/31/2016 DATE OF DISCHARGE: 08/03/2016 REASON FOR ADMISSION: 89-year-old male was brought from the nursing home facility where he resides for evaluation due to dizziness and nausea. The patient reported a similar episode last year when he was admitted to [facility] and underwent extensive workup , but no etiology was apparently identified. The patient admitted to history of recent upper respiratory infection and bronchitis. He had ongoing cough and congestion, but no fever, no chills, no headache, noneck pain, no abdominal pain and no other complaints. Workup in the emergency room revealed EKG with a paced rhythm at 60. Chest x-ray revealed possible pneumonia and small left pleural effusion. Laboratory work revealed mild leukocytosis of 11.4, anemia : hemoglobin-10.8 and hematocrit-32.5. Troponin was negative. CT of the head revealed no acute intracranial pathology. The patient was started on empiric antibiotics for presumed pneumonia and transferred to the telemetry floor for further management. ADMITTING DIAGNOSES: 1. Possible pneumonia. 2. Vertigo. 3. Bronchitis. 4. Pleural effusion. 5. Pacemaker. 6. Hypertension. 7. Coronary artery disease, status post coronary artery bypass graft. 8. History of benign prostatic hypertrophy. HOSPITAL STAY: The patient was admitted on telemetry floor. Started on intravenous fluids. Echocardiogram revealed ejection fraction of 55%, moderate left ventricular hypertrophy, and [id number] mitral regurgitation and tricuspid regurgitation. The patient was on empiric antibiotics. Sputum culture was negative. Antibiotic discontinued. The patient was on supplemental oxygen as needed as well as pulmonary toilet such as handheld nebulizing treatment and chest physical therapy. Antitussive provided as needed. Chest x-ray revealed no acute changes. The patient was working with physical and occupational therapists. Fall precautions were maintained. Blood pressure was managed with current regimen of antihypertensive. Antiplatelet such as aspirin and Plavix were continued. No urinary retention. Continued Proscar and Flomax. DVT prophylaxis provided. Bowel regimen instituted. Meclizine provided as needed. No further episodes dizziness. The patient was stable for discharge home with home health for PT and OT. DISCHARGE DIAGNOSES: 1. Vertigo possibly related to recent history of viral infection. 2. Bronchitis. 3. Hypertension. 4. Coronary artery disease status post coronary artery bypass graft. 5. Sick sinus syndrome, status post pacemaker. 6. History of benign prostatic hypertrophy. 7. History of falls with unsteady gait and history of orbital floor fracture. DISCHARGE MEDICATIONS: Resume home medication. DISCHARGE INSTRUCTIONS: The patient was discharged home with home health for PT and OT. Treatment to be continued. Follow up with the primary medical doctor next week. Akira Santoro M.D. I have been assigned to dictate discharge summary on this account and I was not involved in the patient's management. Elvira Lacey ([facility] N.PRossy DR: MATT JOB#: [id number] CC: CORNELIO
== END 2016-08-03 16:45 | disposition home or self-care (01) | DRG 149 ==
LOC: EDBD 19:17 → EMR 19:33 → 3E 22:07 → EDBEDREQ 08-01 01:00
DX: R42 Dizziness and giddiness (principal); Z95.1 Presence of aortocoronary bypass graft; D64.9 Anemia, unspecified; I08.1 Rheumatic disorders of both mitral and tricuspid valves; Z95.0 Presence of cardiac pacemaker; I25.10 Atherosclerotic heart disease of native coronary artery without angina pectoris; N40.0 Benign prostatic hyperplasia without lower urinary tract symptoms; I10 Essential (primary) hypertension; Z91.81 History of falling; Z79.02 Long term (current) use of antithrombotics/antiplatelets; J40 Bronchitis, not specified as acute or chronic; R26.81 Unsteadiness on feet; M46.90 Unspecified inflammatory spondylopathy, site unspecified
CPT/HCPCS: 36415; 70450; 71010; 80053; 80069; 82465; 82550; 82553; 83735; 83880; 84484; 85025; 87070; 87205; 93306; 94664